=== PATIENT | male | born 2000 | race African-American/Black ===

== ENCOUNTER 2021-03-08 00:55 | Emergency (ER) | payer OTHER ==
[~2021-03-08] VITALS: Ht 182.9 cm; Wt 120.0 kg
[2021-03-08 01:07] VITALS: BP 151/87
[2021-03-08] MEDS ORDERED: SULF1TAB48 MT (01:58)
== END 2021-03-08 02:15 | disposition home or self-care (01) ==
LOC: ER 00:55
DX: L03.032 Cellulitis of left toe (principal); L03.031 Cellulitis of right toe
CPT/HCPCS: 99281